=== PATIENT | female | born 1955 | race Caucasian/White ===

== ENCOUNTER 2017-11-10 08:27 | Emergency (ER) | payer MEDICARE, MEDICAID ==
[~2017-11-10] VITALS: Ht 160 cm; Wt 82.4 kg
[~2017-11-10 08:27] MED LIST: CIPR2.5D18 LEFTEYE; FURO-150 PO; NITR0.4T48 SL; NOR5T PO; POTA20TA19 PO; PRED20TA PO
[2017-11-10] MEDS ORDERED: ipratropium/albuterol 3ml nebule NEB ONE ×2 (08:45→10:05)
[2017-11-10] MEDS ORDERED: normal saline 1000ML IV soln IVB ONE (08:45)
[2017-11-10 09:30] LABS: ALANINE AMINOTRANSFERASE 15 U/L (12-78); ALBUMIN 3.3 G/DL (3.4-5.0); ALBUMIN/GLOBULIN RATIO 0.8 (1.1-1.5); ALKALINE PHOSPHATASE 141 IU/L (46-116); ANION GAP 6 (8-16); ASPARTATE AMINO TRANSFERASE 12 U/L (10-37); BILIRUBIN,TOTAL 0.4 MG/DL (0.1-1.0); BLOOD UREA NITROGEN 14 MG/DL (7-18); BUN/CREATININE RATIO 17.3 (6.6-38.0); CALCIUM 8.8 MG/DL (8.5-10.1); CHLORIDE 104 MMOL/L (99-107); CREATININE 0.81 MG/DL (0.40-0.90); GLUCOSE 111 MG/DL (70-104); POTASSIUM 4.6 MMOL/L (3.5-5.1); SODIUM 137 MMOL/L (135-145); TOTAL CARBON DIOXIDE 27.5 MMOL/L (24-32); TOTAL PROTEIN 7.5 G/DL (6.4-8.2); eGFR 72 ML/MIN
[2017-11-10 09:46] LABS: PARTIAL THROMBOPLASTIN TIME 27 SECONDS (22-32)
[2017-11-10] MEDS ORDERED: methylPREDNISolone sod succ 125mg/2ml vial IV ONE (10:05)
[2017-11-10 10:22] LABS: BASOPHILS % (AUTO) 0.1 % (0-1); EOSINOPHILS # (AUTO) 0.1 X10'3 (0-0.9); HEMOGLOBIN 8.1 g/dl (12.0-16.0); LYMPHOCYTES # (AUTO) 2.3 X10'3 (1.1-4.8); LYMPHOCYTES % (AUTO) 24.3 % (21-51); MEAN CORPUSCULAR HEMOGLOBIN 18.2 PG (27.0-31.0); MEAN CORPUSCULAR HGB CONC 29.1 % (33.0-36.5); MEAN CORPUSCULAR VOLUME 62.4 FL (78-98); MEAN PLATELET VOLUME 6.1 FL (7.4-10.4); MONOCYTES # (AUTO) 0.4 X10'3 (0-0.9); MONOCYTES % (AUTO) 4.6 % (2-12); NEUTROPHILS # (AUTO) 6.6 X10'3 (1.8-7.7); PLATELET COUNT 630 X10'3 (140-440); RED BLOOD COUNT 4.48 X10'6 (4.20-5.60); RED CELL DISTRIBUTION WIDTH 22.2 % (11.5-14.5); WHITE BLOOD COUNT 9.4 X10'3 (4.5-11.0)
[2017-11-10 10:48] LABS: PLATELET ESTIMATE INCREASED
[2017-11-10 10:49] LABS: ANISOCYTOSIS 3+; MICROCYTOSIS 2+
[2017-11-10 10:51] LABS: ELLIPTOCYTES 1+; TEAR DROP CELLS FEW
[2017-11-10 10:52] LABS: POIKILOCYTOSIS FEW; POLYCHROMASIA 1+
[2017-11-10 10:56] LABS: HYPOCHROMASIA 3+; TARGET CELLS 1+
[2017-11-10 10:58] VITALS: BP 125/86
[2017-11-10] MEDS ORDERED: ALBU8.5H8 INH (11:27)
[2017-11-10] MEDS ORDERED: PRED50TA PO (11:27)
[2017-11-10] MEDS ORDERED: LEVO750T21 PO (11:27)
[2017-11-10] MEDS ORDERED: GUAI120015 PO (11:27)
== END 2017-11-10 11:48 | disposition home or self-care (01) ==
LOC: ER 08:28
DX: J44.1 Chronic obstructive pulmonary disease with (acute) exacerbation (principal); E11.9 Type 2 diabetes mellitus without complications; I25.2 Old myocardial infarction; I50.9 Heart failure, unspecified; F17.210 Nicotine dependence, cigarettes, uncomplicated; Z91.09 Other allergy status, other than to drugs and biological substances
CPT/HCPCS: 36415; 71046; 80053; 83880; 84484; 85025; 85610; 85730; 87502; 87503; 93005; 94640; 94760; 96374; 99285; J2930; J7030

== ENCOUNTER 2019-09-08 08:07 | Emergency (ER) | payer MEDICARE, MEDICAID ==
[~2019-09-08] VITALS: Ht 162.6 cm; Wt 79.0 kg
[~2019-09-08 08:07] MED LIST changes: +ALBU8.5H8 INH; +DICL100G15 TOP; +GUAI120015 PO; +PRED50TA PO
[2019-09-08 08:20] VITALS: BP 157/103
[2019-09-08] MEDS ORDERED: AMOX-422 PO (08:40)
[2019-09-08] MEDS ORDERED: gentamicin 0.3% ophthalmic drops 5ML LEFTEYE ONE (08:40)
== END 2019-09-08 09:10 | disposition home or self-care (01) ==
LOC: ER 08:07
DX: H10.9 Unspecified conjunctivitis (principal); H00.015 Hordeolum externum left lower eyelid; H00.014 Hordeolum externum left upper eyelid; I25.2 Old myocardial infarction; J44.9 Chronic obstructive pulmonary disease, unspecified; E11.9 Type 2 diabetes mellitus without complications; I50.9 Heart failure, unspecified; F17.210 Nicotine dependence, cigarettes, uncomplicated; Z98.890 Other specified postprocedural states; Z60.2 Problems related to living alone; Z88.8 Allergy status to other drugs, medicaments and biological substances; Z79.899 Other long term (current) drug therapy
CPT/HCPCS: 99283

== ENCOUNTER 2024-11-11 09:31 | Emergency (ER) | payer MEDICARE, MEDICAID ==
[~2024-11-11] VITALS: Ht 157.5 cm; Wt 63.9 kg
[~2024-11-11 09:31] MED LIST changes: +ALBU8.5H17 INH; -ALBU8.5H8 INH; +CIPR2.5D12 LEFTEYE; -CIPR2.5D18 LEFTEYE; +POTA-207 PO; -POTA20TA19 PO
[2024-11-11 09:34] VITALS: TEMP 98
[2024-11-11 10:16] LABS: HEMATOCRIT 25.4 % (35.0-45.0); HEMOGLOBIN 7.1 g/dl (12.0-16.0); MEAN CORPUSCULAR HEMOGLOBIN 16.3 PG (27.0-31.0); MEAN CORPUSCULAR HGB CONC 27.9 g/dL (33.0-36.5); MEAN CORPUSCULAR VOLUME 58.5 FL (78-98); PLATELET COUNT 295 X10'3 (140-440); RED BLOOD COUNT 4.35 X10'6 (4.20-5.60); WHITE BLOOD COUNT 7.8 X10'3 (4.5-11.0)
[2024-11-11 10:33] LABS: ALANINE AMINOTRANSFERASE 15 U/L (12-78); ALBUMIN 3.8 G/DL (3.4-5.0); ALKALINE PHOSPHATASE 104 IU/L (46-116); ANION GAP 8 (8-16); ASPARTATE AMINO TRANSFERASE 7 U/L (10-37); BILIRUBIN,TOTAL 0.3 MG/DL (0.1-1.0); BLOOD UREA NITROGEN 14 MG/DL (7-18); BUN/CREATININE RATIO 15.6 (10.0-20.0); CALCIUM 8.9 MG/DL (8.5-10.1); CHLORIDE 104 MMOL/L (99-107); GLUCOSE 156 MG/DL (70-104); POTASSIUM 4.2 MMOL/L (3.5-5.1); SODIUM 137 MMOL/L (135-145); TOTAL CARBON DIOXIDE 25.5 MMOL/L (24-32); TOTAL PROTEIN 7.6 G/DL (6.4-8.2); eCRCL 48 ML/MIN; eGFR 62 ML/MIN
[2024-11-11 10:42] LABS: ANISOCYTOSIS 3+; HYPOCHROMASIA 3+; MICROCYTOSIS 3+; PLATELET ESTIMATE NORMAL; TOTAL CELLS COUNTED 100
[2024-11-11 10:43] LABS: ELLIPTOCYTES 1+; PRO BRAIN NATRIURETIC PEPTIDE 312 PG/ML (0-125); SPHEROCYTES FEW; TEAR DROP CELLS FEW
[2024-11-11 10:44] LABS: POLYCHROMASIA FEW; SCHISTOCYTES FEW; TARGET CELLS FEW
[2024-11-11] MEDS: acetaminophen 325mg tablet PO ONE (10:52)
[2024-11-11 12:30] VITALS: BP 116/68; PULSE 78; RESP 14; O2SAT 99
== END 2024-11-11 12:32 | disposition left against medical advice (07) ==
LOC: ER 09:32
DX: D64.9 Anemia, unspecified (principal); J44.9 Chronic obstructive pulmonary disease, unspecified; I50.9 Heart failure, unspecified; F17.200 Nicotine dependence, unspecified, uncomplicated; E11.9 Type 2 diabetes mellitus without complications; Z88.8 Allergy status to other drugs, medicaments and biological substances
CPT/HCPCS: 36415; 71045; 74176; 80053; 83880; 84484; 85007; 85025; 86885; 86900; 86901; 93005; 99285; A4615